=== PATIENT | male | born 1980 | race Caucasian/White ===

== ENCOUNTER 2024-12-25 14:35 | Emergency (ER) | payer BC ==
[~2024-12-25] VITALS: Ht 177.8 cm; Wt 95.0 kg
[2024-12-25 14:40] VITALS: O2SAT 95
[2024-12-25] MEDS ORDERED: CEPH500C2 MT (15:39)
[2024-12-25 15:51] VITALS: BP 142/92; PULSE 110; RESP 14; TEMP 36.7; O2SAT 96
== END 2024-12-25 15:59 | disposition home or self-care (01) ==
LOC: ER 14:35
DX: L03.211 Cellulitis of face (principal); M19.90 Unspecified osteoarthritis, unspecified site; Z79.899 Other long term (current) drug therapy
CPT/HCPCS: 99283; Z7610